=== PATIENT | female | born 1995 | race Caucasian/White ===

== ENCOUNTER 2017-07-02 00:52 | Emergency (ER) | payer MEDICAID ==
[~2017-07-02] VITALS: Ht 182.9 cm; Wt 91.0 kg
[2017-07-02 08:17] VITALS: BP 116/61
== END 2017-07-02 08:18 | disposition home or self-care (01) ==
LOC: ER 07:51
DX: S00.33XA Contusion of nose, initial encounter (principal); W50.0XXA Accidental hit or strike by another person, initial encounter; Y93.89 Activity, other specified; Y92.89 Other specified places as the place of occurrence of the external cause; Y99.8 Other external cause status
CPT/HCPCS: 81025; 99283

== ENCOUNTER 2024-04-18 17:00 | Emergency (ER) | payer MEDICAID ==
[~2024-04-18] VITALS: Ht 167.6 cm; Wt 82.0 kg
[2024-04-18 17:10] VITALS: TEMP 98.1; O2SAT 97
[2024-04-18] MEDS: ACETAMINOPHEN 325MG TABLET PO STA (17:38)
[2024-04-18 18:32] LABS: BASOPHILS % 0.3 % (0.0-2.0); DIFFERENTIAL COMMENT 0; EOSINOPHILS % 0.8 % (0.0-5.0); HEMATOCRIT. 33.4 % (36.0-48.0); HEMOGLOBIN. 11.1 g/dL (12.0-16.0); LYMPHOCYTES % 15.1 % (20.0-50.0); MEAN CORPUSCULAR HEMOGLOBIN 26.3 pg (28.0-32.0); MEAN CORPUSCULAR HGB CONC 33.2 g/dL (31.0-37.0); MEAN CORPUSCULAR VOLUME 79.3 fL (81.0-99.0); MEAN PLATELET VOLUME 8.5 fl (7.4-10.4); MONOCYTES % 6.6 % (2.0-8.0); NEUTROPHILS % 77.2 % (40.0-76.0); PLATELET 373 x1000/uL (130-400); RED BLOOD CELL COUNT 4.21 mill/uL (4.2-5.4); RED CELL DISTRIBUTION WIDTH 17.8 % (11.6-14.6); WHITE BLOOD COUNT 9.7 x1000/uL (4.5-11.0)
[2024-04-18 18:39] LABS: CHLORIDE 105 mEq/L (98-107); POTASSIUM 3.1 mEq/L (3.5-5.1); SODIUM 136 mEq/L (136-145)
[2024-04-18 18:40] LABS: CARBON DIOXIDE 23 mEq/L (21-32)
[2024-04-18 18:41] LABS: CALCIUM 8.9 mg/dL (8.7-10.4)
[2024-04-18 18:45] LABS: CREATININE 0.5 mg/dL (0.6-1.0); GLUCOSE 81 mg/dL (70-105); UREA NITROGEN BLOOD 7 mg/dL (9-23)
[2024-04-18 18:48] LABS: PROTHROMBIN TIME 11.4 sec (9.6-11.0)
[2024-04-18] MEDS: METOCLOPRAMIDE HCL 10MG/2ML VIAL IV ONE (19:15)
[2024-04-18 19:36] LABS: CLARITY URINE CLOUDY (CLEAR); COLOR URINE YELLOW (YELLOW); GLUCOSE URINE NEGATIVE (NEGATIVE); KETONES URINE TRACE (NEGATIVE); LEUKOCYTE ESTERASE URINE NEGATIVE (NEGATIVE); NITRITE URINE NEGATIVE (NEGATIVE); OCCULT BLOOD URINE NEGATIVE (NEGATIVE); PH URINE 5.5 (4.5-8.0); PROTEIN URINE 3+ (NEGATIVE); SPECIFIC GRAVITY URINE 1.033 (1.005-1.030)
[2024-04-18 20:00] LABS: BACTERIA URINE 1+; HYALINE CASTS URINE 0-5 /lpf; MUCUS URINE 1+ /lpf (< = 2+); RBC URINE NONE SEEN /hpf (0-2); SQUAMOUS EPITHELIAL CELL URINE 1+ /lpf (RARE/1+); WBC URINE 0-2 /hpf (0-2)
[2024-04-18 22:00] VITALS: BP 112/51; PULSE 68; RESP 18
== END 2024-04-18 22:14 | disposition home or self-care (01) ==
LOC: ER 17:00
DX: O21.9 Vomiting of pregnancy, unspecified (principal); Z3A.08 8 weeks gestation of pregnancy; D64.9 Anemia, unspecified
CPT/HCPCS: 36415; 73610; 76801; 80048; 81003; 85025; 99284